=== PATIENT | female | born 1950 | race African-American/Black ===

== ENCOUNTER → 2024-07-12 | Outpatient (CLI) | payer OTHER, MEDICAID, SELFPAY ==
[2024-07-12 11:41] LABS: Glucose Estimated Average 108 mg/dL (80-131); Hemoglobin A1C 5.4 % Hgb (4.8-6.0)
== END | disposition home or self-care (01) ==
PROVIDERS: PCP Internal Medicine; Referring Provider Internal Medicine; Visit Provider Internal Medicine
DX: E11.9 Type 2 diabetes mellitus without complications (principal)
CPT/HCPCS: 36415; 83036

== ENCOUNTER → 2024-08-16 | Outpatient (CLI) | payer OTHER, MEDICAID, SELFPAY ==
[2024-08-16 16:37] LABS: Creatinine MALB Rnd Ur 129 mg/dL (30-125); Microalbumin Creat Ratio 160 mg/gCrea (<30); Microalbumin, Random Urine 207 mg/L (0-300)
== END | disposition home or self-care (01) ==
LOC: COPL 15:08
PROVIDERS: PCP Internal Medicine; Referring Provider Internal Medicine; Visit Provider Internal Medicine
DX: E11.9 Type 2 diabetes mellitus without complications (principal)
CPT/HCPCS: 82043; 82570

== ENCOUNTER → 2024-11-21 | Outpatient (CLI) | payer MEDICARE, MEDICAID, SELFPAY ==
[2024-11-21 10:16] LABS: Basophils % (Auto) 1 % (0-2.5); Eosinophils # (Auto) 0.2 Thou/mm3 (0.0-0.5); Eosinophils % (Auto) 5 % (0-10); Hematocrit 33.5 % (36.0-46.0); Hemoglobin 10.7 g/dL (12.0-16.0); Immature Granulocytes % (Auto) 1 % (0-0); Immature Granulocytes Auto 0.02 Thou/mm3 (0.00-0.00); Lymphocytes % (Auto) 30 % (10-50); Mean Corpuscular HGB Conc 31.9 g/dl (31.0-37.0); Mean Corpuscular Hemoglobin 29.1 pg (25.0-35.0); Mean Corpuscular Volume 91 fL (80-100); Monocytes # (Auto) 0.4 Thou/mm3 (0.0-0.8); Monocytes % (Auto) 12 % (0-12); Neutrophils # (Auto) 1.7 Thou/mm3 (1.8-7.7); Neutrophils % (Auto) 52 % (37-80); Nucleated Red Blood Cell % 0 /100 WBC (0); Platelet Count 191 Thou/mm3 (140-440); RDW Standard Deviation 45.5 fL (36.4-46.3); Red Blood Count 3.68 Miln/mm3 (4.00-5.20); White Blood Count 3.3 Thou/mm3 (3.6-11.0)
[2024-11-21 10:24] LABS: Glucose Estimated Average 105 mg/dL (80-131); Hemoglobin A1C 5.3 % Hgb (4.8-6.0); Partial Thromboplastin Time 27.2 Seconds (22.0-36.0); Prothrombin Time 11.4 Seconds (9.0-12.2)
[2024-11-21 10:40] LABS: Alanine Aminotransferase 10 U/L (10-49); Albumin, Serum 4.1 gm/dL (3.4-4.8); Albumin/Globulin Ratio 1.8 (1.2-2.2); Alkaline Phosphatase 88 U/L (46-116); Anion Gap 8 (7-16); Aspartate Amino Transferase 15 U/L (0-34); BUN/Creatinine Ratio 18 Ratio (12-20); Bilirubin,Total 0.5 mg/dL (0.3-1.2); Blood Urea Nitrogen 14 mg/dL (9-23); Calcium 9.4 mg/dL (8.3-10.6); Calcium (Corrected) 9.4 mg/dL (8.5-10.1); Carbon Dioxide 30.5 mMol/L (20.0-31.0); Cardiac Risk Estimate 1.9 RATIO (3.7-5.6); Chloride 103 mMol/L (98-107); Cholesterol 155 mg/dL (132-200); Creatinine (Component) 0.8 mg/dL (0.6-1.3); Free T4 (Free Thyroxine) 1.12 ng/dL (0.89-1.76); Globulin 2.3 gm/dL (2.3-3.5); Glucose 107 mg/dL (74-106); HDL Cholesterol 80 mg/dL (40-60); LDL Cholesterol,Calculated 67 mg/dL (0-130); Osmolality,Calculated 281 (275-295); Potassium 4.5 mMol/L (3.4-5.1); Sodium 141 mMol/L (136-145); Thyroid Stimulating Hormone 1.88 uIU/mL (0.55-4.78); Total Protein 6.4 gm/dL (5.7-8.2); Triglycerides 39 mg/dL (30-150); eGFR > 60 See Note
== END | disposition home or self-care (01) ==
PROVIDERS: PCP Internal Medicine; Referring Provider Internal Medicine; Visit Provider Internal Medicine
DX: Z00.00 Encounter for general adult medical examination without abnormal findings (principal); I10 Essential (primary) hypertension; E11.65 Type 2 diabetes mellitus with hyperglycemia
CPT/HCPCS: 36415; 80053; 80061; 83036; 84439; 84443; 85025; 85610; 85730

== ENCOUNTER → 2025-02-16 | Outpatient (CLI) | payer MEDICARE, MEDICAID, SELFPAY ==
[2025-02-16 11:19] LABS: Basophils % (Auto) 1 % (0-2.5); Eosinophils # (Auto) 0.1 Thou/mm3 (0.0-0.5); Eosinophils % (Auto) 3 % (0-10); Hematocrit 37.7 % (36.0-46.0); Immature Granulocytes % (Auto) 1 % (0-0); Immature Granulocytes Auto 0.02 Thou/mm3 (0.00-0.00); Lymphocytes % (Auto) 24 % (10-50); Mean Corpuscular HGB Conc 31.8 g/dl (31.0-37.0); Mean Corpuscular Hemoglobin 29.6 pg (25.0-35.0); Mean Corpuscular Volume 93 fL (80-100); Monocytes # (Auto) 0.4 Thou/mm3 (0.0-0.8); Monocytes % (Auto) 10 % (0-12); Neutrophils # (Auto) 2.5 Thou/mm3 (1.8-7.7); Neutrophils % (Auto) 62 % (37-80); Nucleated Red Blood Cell % 0 /100 WBC (0); Platelet Count 133 Thou/mm3 (140-440); RDW Standard Deviation 49.5 fL (36.4-46.3); Red Blood Count 4.05 Miln/mm3 (4.00-5.20); White Blood Count 4.1 Thou/mm3 (3.6-11.0)
[2025-02-16 11:32] LABS: Glucose Estimated Average 103 mg/dL (80-131); Hemoglobin A1C 5.2 % Hgb (4.8-6.0)
[2025-02-16 11:51] LABS: Alanine Aminotransferase 14 U/L (10-49); Albumin, Serum 4.3 gm/dL (3.4-4.8); Albumin/Globulin Ratio 1.8 (1.2-2.2); Alkaline Phosphatase 77 U/L (46-116); Anion Gap 7 (7-16); Aspartate Amino Transferase 22 U/L (0-34); BUN/Creatinine Ratio 13 Ratio (12-20); Bilirubin,Total 0.5 mg/dL (0.3-1.2); Blood Urea Nitrogen 13 mg/dL (9-23); Calcium 9.5 mg/dL (8.3-10.6); Calcium (Corrected) 9.5 mg/dL (8.5-10.1); Carbon Dioxide 30.5 mMol/L (20.0-31.0); Chloride 107 mMol/L (98-107); Globulin 2.4 gm/dL (2.3-3.5); Glucose 106 mg/dL (74-106); Osmolality,Calculated 286 (275-295); Potassium 4.3 mMol/L (3.4-5.1); Sodium 144 mMol/L (136-145); Total Protein 6.7 gm/dL (5.7-8.2); eGFR 58 See Note
[2025-02-16 11:58] LABS: Creatinine MALB Rnd Ur 85 mg/dL (30-125)
[2025-02-16 12:12] LABS: Microalbumin Creat Ratio 559 mg/gCrea (<30); Microalbumin, Random Urine 475 mg/L (0-300)
== END | disposition home or self-care (01) ==
LOC: COPL 09:53
PROVIDERS: PCP Internal Medicine; Referring Provider Internal Medicine; Visit Provider Internal Medicine
DX: E11.65 Type 2 diabetes mellitus with hyperglycemia (principal); I10 Essential (primary) hypertension; D50.0 Iron deficiency anemia secondary to blood loss (chronic)
CPT/HCPCS: 36415; 80053; 82043; 82570; 83036; 85025

== ENCOUNTER → 2025-03-07 | Outpatient (CLI) | payer MEDICARE, MEDICAID, SELFPAY ==
--- NOTE | 2025-03-07 14:20 | XR_ITS ---
Examination: Bone densitometry Date and time of exam:March 07, 2025 1443 hours INDICATIONS: Menopause age 43 postmenopausal humerus fracture, personal history osteopenia Technique: Lumbar spine and hip total bone mineralization values of an calculated. Peak reference and age match control results have been displayed. Findings: Lumbar spine total bone mineralization is1.126 gm/cm2. This is 0.2 standard deviations below peak reference. This is 2.5 standard deviations above age-matched controls. Hip total bone mineralization is 0.781 gm/cm2 This is 1.6 standard deviations below peak reference. This is 0.3 standard deviations below age-matched controls Impression: There is normal mineralization based on lumbar spine measurements. There is osteoporosis based on hip measurements Lumbar mineralization is increased 6.6% compared with September 21, 2017 Hip mineralization is decreased 2.7% compared with September 21, 2017
== END | disposition home or self-care (01) ==
PROVIDERS: Referring Provider Physician Assistant; Visit Provider Physician Assistant
DX: M81.0 Age-related osteoporosis without current pathological fracture (principal)
CPT/HCPCS: 77080

== ENCOUNTER 2025-06-26 12:56 | Emergency (ER) | payer MEDICARE, MEDICAID, SELFPAY ==
[2025-06-26 13:09] VITALS: BP 197/134; PULSE 70; RESP 18; TEMP 36.4; O2SAT 98; BMI 34.9
--- NOTE | 2025-06-26 13:16 | XR_ITS ---
Examination: CT abdomen and pelvis without contrast. Coronal 3-D reconstructions. Sagittal 2-D reconstructions. Date and time of exam: June 18, 2025, 1406 hours INDICATIONS: Generalized abdominal pain today CTDI: vol (mGy): 11.8 DLP: (mGycm): 626 Technique: Axial images of the abdomen have been obtained, 3 mm slice thickness Intravenous contrast material has not been administered. Low dose protocols were performed. One or more of the following dose reduction techniques were used; automated exposure control, adjustment of the mA and/or KV according to patient size, use of iterative reconstruction technique. Findings: No focal liver lesions Spleen is not enlarged Absent gallbladder No extrahepatic biliary tract dilatation Gastric sutures Cystic structure 36 mm adjacent to the gastric fundus noted The August 24, 2022 exam No pancreatic mass Minimal 10 mm fat-containing left adrenal nodule Scarring in the anterior abdominal wall No renal or ureteral calculi Aortic calcification no aneurysmal dilatation IVC filter noted No pericecal inflammatory change A few fluid distended small bowel loops in the left abdomen Mild thickening of the left rectus muscle coronal image 162 measuring up to 25 mm in AP dimension and 5.8 cm in mediolateral dimension,. Air in the urinary bladder Atrophic uterus Severe osteopenia with anterolisthesis L4 on L5 and L5 on S1 IMPRESSION: Mild thickening of the left rectus muscle most consistent with hematoma, 2.5 cm in AP dimension and 5.8 cm in mediolateral dimension, clinical correlation advised Mild small bowel ileus
--- NOTE | 2025-06-26 13:17 | EDRME_ITS ---
Rapid Medical Screening Exam RME Arrival date/time: 06/26/25 12:56 74-year-old female with a history of hypertension presents to the emergency room with a chief complaint of bilateral lower pelvic 8 out of 10 abdominal pain x 2 days I have greeted and performed a focused initial assessment of this patient. A com prehensive ED assessment and evaluation of the patient, analysis of all test results, and completion of the medical decision making process will be conducted by additional ED providers. Chief Complaint: Flu Like Symptoms Time Seen by Provider: 06/26/25 13:03 Vital signs: Vital Signs Temperature 97.6 F 06/26/25 13:09 Pulse Rate 70 06/26/25 13:09 Respiratory Rate 18 06/26/25 13:09 Blood Pressure 197/134 H 06/26/25 13:09 Pulse Oximetry (%) 98 06/26/25 13:09 Oxygen Delivery Method Room Air 06/26/25 13:09 Vital signs reviewed by provider: Yes Exam: 8 out of 10 tenderness to the bilateral lower abdomen Clear bilateral lung sounds Clinical Impression: Appendicitis/diverticulitis/abdominal pain
[2025-06-26 13:24] VITALS: BP 197/134; PULSE 70
[2025-06-26] MEDS: KETOROLAC INJ 60 MG/2 ML VIAL 30 MG IM (13:24)
--- NOTE | 2025-06-26 14:33 | PC.NURSE ---
PT TRYING TO GIVE URINE SPECIMEN WHEN ASKED.
[2025-06-26 14:36] LABS: Basophils # (Auto) 0.0 Thou/mm3 (0.0-0.2); Basophils % (Auto) 1 % (0-2.5); Eosinophils # (Auto) 0.4 Thou/mm3 (0.0-0.5); Eosinophils % (Auto) 9 % (0-10); Hematocrit 35.7 % (36.0-46.0); Hemoglobin 11.6 g/dL (12.0-16.0); Immature Granulocytes Auto 0.01 Thou/mm3 (0.00-0.00); Lymphocytes # (Auto) 1.0 Thou/mm3 (1.0-4.8); Lymphocytes % (Auto) 26 % (10-50); Mean Corpuscular HGB Conc 32.5 g/dl (31.0-37.0); Mean Corpuscular Hemoglobin 30.1 pg (25.0-35.0); Mean Corpuscular Volume 93 fL (80-100); Monocytes # (Auto) 0.3 Thou/mm3 (0.0-0.8); Monocytes % (Auto) 9 % (0-12); Neutrophils # (Auto) 2.2 Thou/mm3 (1.8-7.7); Neutrophils % (Auto) 55 % (37-80); Nucleated Red Blood Cell # 0.00 Thou/mm3 (0.00-0.00); Nucleated Red Blood Cell % 0 /100 WBC (0); Platelet Count 140 Thou/mm3 (140-440); RDW Standard Deviation 46.2 fL (36.4-46.3); Red Blood Count 3.85 Miln/mm3 (4.00-5.20); White Blood Count 4.0 Thou/mm3 (3.6-11.0)
[2025-06-26 14:55] LABS: Alanine Aminotransferase 14 U/L (10-49); Albumin, Serum 4.3 gm/dL (3.4-4.8); Albumin/Globulin Ratio 2.0 (1.2-2.2); Alkaline Phosphatase 87 U/L (46-116); Anion Gap 8 (7-16); Aspartate Amino Transferase 28 U/L (0-34); BUN/Creatinine Ratio 13 Ratio (12-20); Bilirubin,Total 0.7 mg/dL (0.3-1.2); Blood Urea Nitrogen 10 mg/dL (9-23); Calcium 9.0 mg/dL (8.3-10.6); Calcium (Corrected) 9.0 mg/dL (8.5-10.1); Carbon Dioxide 29.8 mMol/L (20.0-31.0); Chloride 105 mMol/L (98-107); Creatinine (Component) 0.8 mg/dL (0.6-1.3); Estimated Creatinine Clearance 58.8 mL/min (>60); Globulin 2.1 gm/dL (2.3-3.5); Glucose 108 mg/dL (74-106); Lipase 29 U/L (12-53); Osmolality,Calculated 284 (275-295); Potassium 3.6 mMol/L (3.4-5.1); Sodium 143 mMol/L (136-145); Total Protein 6.4 gm/dL (5.7-8.2); eGFR > 60 See Note
[2025-06-26 15:54] LABS: Collection Type, Urine Clean Catch
[2025-06-26 16:18] LABS: Bacteria,Urine 1+; Bilirubin,Urine Negative (Negative); Blood,Urine Trace (Negative); Color,Urine Yellow (Lt Yel-Yel); Glucose, Urine Negative (Negative); Hyaline Casts,Urine < 1 /hpf (0-1); Ketones,Urine Negative (Negative); Leukocyte Esterase,Urine Positive (Negative); Nitrite,Urine Negative (Negative); PH,Urine 6.5 (5.0-7.0); Protein,Urine 1+ (Neg - Trace); RBC,Urine 3 /hpf (0-3); Specific Gravity,Urine 1.015 (1.001-1.035); Squamous Epithelial Cell,Urine 1 /hpf (0-5); Urobilinogen,Urine Negative mg/dL (0.0-1.0); WBC,Urine 33 /hpf (0-5)
--- NOTE | 2025-06-26 16:46 | PC.NURSE ---
PATIENT CAME UP TO TRIAGE NURSE AND STATED SHE WOULD BE LEAVING DUE TO HAVING WAITED HERE ALL DAY TO GET HER RESULTS. PATIENT WAS EXPLAINED THAT SHE WOULD NOT BE PRESCRIBED ANYTHING IF NEEDED IF SHE DECIDED TO LEAVE. PATIENT STATED SHE DID NOT CARE AND SHE WOULD BE LEAVING WITHOUT BEING DISCHARGED.
[2025-06-26 16:56] LABS: Clarity,Urine Hazy (Clear/Hazy)
== END 2025-06-26 16:49 | disposition left against medical advice (07) ==
LOC: SERX 13:34
PROVIDERS: Nurse Practitioner Family; Emergency Provider Family Medicine; PCP Family Medicine
DX: Z53.21 Procedure and treatment not carried out due to patient leaving prior to being seen by health care provider (principal)
CPT/HCPCS: 36415; 74176; 80053; 81001; 83690; 85025; 87077; 87086; 87186; 96372; 99283; J1885; A9270

== ENCOUNTER 2025-07-14 16:53 | Emergency (ER) | payer MEDICARE, MEDICAID, SELFPAY ==
[2025-07-14 17:56] VITALS: BP 225/117; PULSE 61; RESP 17; TEMP 36.7; O2SAT 96; BMI 34.7
[2025-07-14 18:22] VITALS: BP 248/115; PULSE 59; RESP 18; O2SAT 99
--- NOTE | 2025-07-14 18:27 | PC.NURSE ---
md notified of bp at this time , patient will be seen by provider
--- NOTE | 2025-07-14 18:35 | XR_ITS ---
Examination: Fingers, left hand second digit 3 views Technique: AP, oblique, lateral views left hand second digit 3 views. Exam date and time: July 14 2025, 1857 hours INDICATIONS: Left second digit swelling and pain beginning 2 months ago. FINDINGS: Soft tissue swelling second digit centered around the proximal interphalangeal joint No acute fracture No focal bone destruction Significant osteoarthritis proximal and distal interphalangeal joint second digit IMPRESSION: Soft tissue swelling about the second digit with osteoarthritis as above
--- NOTE | 2025-07-14 18:36 | PD.EDHAND ---
Upper Extremity Injury RME/HPI General Chief Complaint: Hand/Wrist Problems Stated Complaint: L HAND 2ND DIGIT SWELLING X 2 WEEKS Time Seen by Provider: 07/14/25 18:27 Arrival date/time: 07/14/25 16:53 RME / HPI RME / HPI narrative: Dr. Balderrama?s Main ED Evaluation: 74 y/o female with Hx of Osteoarthritis, Type II DM, HTN, and Anxiety presents with left hand, second digit pain and swelling x 2 weeks, worse over the last week. Patient reports blood pressure generally increases when she is in pain. Denies fever, chills, and sweats. Related Data Home Medications ?Medication ?Instructions ?Recorded ?Confirmed benazepril 40 mg tablet 40 mg PO QAM 04/14/22 02/18/23 carvedilol 6.25 mg tablet 6.25 mg PO BID 04/14/22 02/18/23 duloxetine 40 mg capsule,delayed 40 mg PO BID 04/14/22 02/18/23 release hydrocodone 10 mg-acetaminophen 1 tab PO Q6H PRN Moderate Pain 08/26/22 02/18/23 325 mg tablet (Scale Score 5-6) Held on 02/18/23. Instructions: Resume on 02/19/23. ferrous sulfate 325 mg (65 mg 325 mg PO BID 02/18/23 02/18/23 iron) tablet (FeroSul) montelukast 10 mg tablet 10 mg PO DAILY 02/18/23 02/18/23 oxybutynin chloride 10 mg 10 mg PO DAILY 02/18/23 02/18/23 tablet,extended release 24 hr triamterene 37.5 1 tab PO DAILY 02/18/23 02/18/23 mg-hydrochlorothiazide 25 mg tablet Allergies Allergy/AdvReac Type Severity Reaction Status Date / Time ampicillin Allergy Unknown RASH, FEVER Verified 07/14/25 16:55 fentanyl Allergy Unknown Hives Verified 07/14/25 16:55 morphine Allergy Unknown Hives Verified 07/14/25 16:55 Penicillins Allergy Unknown RASH, FEVER Verified 07/14/25 16:55 sulfamethizole Allergy Unknown Itching Verified 07/14/25 16:55 trimethoprim Allergy Unknown Itching Verified 07/14/25 16:55 Review of Systems Review of Systems Systems Reviewed: All systems reviewed, normal except as documented Past Medical History Past Medical History NEUROLOGIC: Positive Neurological Disorders and Migraine CARDIAC: Positive Deep Vein Thrombosis and Hypertension RESPIRATORY: Positive Asthma and Pneumonia GASTROINTESTINAL: Positive Gastrointestinal Disorders, Hepatitis, Gall Bladder Disease, Gastrointestinal Bleed and Gastroesophageal Reflux Disease GENITOURINARY: Positive Genitourinary Disorders REPRODUCTIVE: Positive Previous Pregnancies MUSCULOSKELETAL: Positive Musculoskeletal Disorders and Arthritis ENT: Positive Cataracts ENDOCRINE: Positive Endocrine Disorders and Diabetes Mellitus Type 2 (hypoglycemic) PSYCHO/SOCIAL: Positive Depression and Anxiety OTHER HISTORY: Positive Hospitalization, Falls, Blood Transfusions, Chicken Pox, Measles and Mumps Family History FAMILY HISTORY: Positive Family Cardiac Disorders and Family Surgery Surgical History SURGICAL: Positive Abdominal Surgery, Gastric Bypass Surgery and Joint Replacement ED Exam Narrative Physical exam: GENERAL APPEARANCE: alert and oriented x 4, well-developed, well-nourished, no acute distress VITALS: All vitals were reviewed and the pulse ox is 99% on room air, which is normal according to my interpretation. HEENT: Normocephalic, atraumatic; pupils equal, round, reactive to light; EOMI; mucous membranes pink, moist; oropharynx clear NECK: Supple LUNGS: CTABL; no wheezes, no rales, no rhonchi HEART: Regular rate, regular rhythm; normal S1, S2; no murmurs ABDOMEN: non distended; normal BS; soft, no tenderness, no guarding, no rebound; no masses, no organomegaly, no hernia BACK: no CVA tenderness EXTREMITIES: Left Hand: second digit with circumferential swelling between the MCP and DIP, TTP, no erythema, open wounds, or deformities. Finger is not held in passive flexion, there is no tenderness along the extensor tendon. There is mild tenderness on passive extension of the finger. NEUROLOGIC: awake; alert and oriented x4; cranial nerves II-XII grossly intact; no focal sensory or motor deficits PSYCHIATRIC: appropriate mood and affect SKIN: warm, dry, normal color; no rashes Course Quality Measures none Orders Category Date Time Status Miscellaneous Nursing Order NOW Care 07/14/25 19:34 Completed XR finger LT min 2V Stat Exams 07/14/25 18:35 Completed HYDROcodone*/APAP 5/325 [Valentine 5/325] Med 07/14/25 18:35 Discontinued 1 tab PO X1 ONE Ketorolac Inj [Toradol Inj] Med 07/14/25 18:35 Discontinued 30 mg IM X1 ONE cloNIDine HCL [Catapres] Med 07/14/25 18:35 Discontinued 0.1 mg PO X1 ONE Vital Signs Vital signs: Vital Signs Temperature 98.0 F 07/14/25 17:56 Pulse Rate 61 07/14/25 17:56 Respiratory Rate 17 07/14/25 17:56 Blood Pressure 225/117 H 07/14/25 17:56 Pulse Oximetry (%) 96 07/14/25 17:56 Oxygen Delivery Method Aerosol Mask 07/14/25 17:56 Extremity Injury MDM Narrative MDM Narrative:: Scribe Attestation: I, Kristi Marshall, am scribing for and in the presence of Dr. Balderrama. Provider Notation: Although this document has been carefully reviewed, there may still be some phonetic and other typographical errors. These errors are purely grammatical due to imperfections in the software program and should not be construed in any way to compromise the substance of the patient's medical care during this visit. Patient data External records reviewed:: [facility] previous records (Reviewed prior ED records from 09/04/22. Patient was seen for DVT (deep venous thrombosis).) Clinical information provided by:: patient Social determinants that could affect healthcare access:: none Patient has the following chronic illnesses:: Migraine, Deep Vein Thrombosis, Hypertension, Asthma, Hepatitis, Gall Bladder Disease, Gastrointestinal Bleed, Gastroesophageal Reflux Disease, Osteoarthritis, Cataracts, Diabetes Mellitus Type 2, Depression and Anxiety How is presenting disease/condition affected by chronic disease/condition?: exacerbated by Evaluation data The following diagnostics were reviewed and interpreted by me:: radiology exam(s) Lab and/or radiology exams considered but not ordered:: None Interpretation Summary: RADIOLOGY Left Finger 2v x-ray, per my interpretation, shows evidence of advanced arthritis and possible fracture at the PIP joint of the second digit. Left Finger X-Ray: FINDINGS: Soft tissue swelling second digit centered around the proximal interphalangeal joint No acute fracture No focal bone destruction Significant osteoarthritis proximal and distal interphalangeal joint second digit IMPRESSION: Soft tissue swelling about the second digit with osteoarthritis as above Medications / Prescriptions Medications or Prescriptions considered but not ordered:: None Medication administrations:: Medication Administration History Discontinued Medications Hydrocodone Bitart/Acetaminophen (Hydrocodone/Apap 5/325 Tablet) 1 tab PO X1 ONE Stop: 07/14/25 18:36 Last Admin: 07/14/25 18:51 Dose: 1 tab Documented By: EMMIE Clonidine (Clonidine Hcl 0.1 Mg Tablet) 0.1 mg PO X1 ONE Stop: 07/14/25 18:36 Last Admin: 07/14/25 18:52 Dose: 0.1 mg Documented By: EMMIE Ketorolac Tromethamine (Ketorolac Inj 30 Mg/Ml Vial) 30 mg IM X1 ONE Stop: 07/14/25 18:36 Last Admin: 07/14/25 18:51 Dose: 30 mg Documented By: EMMIE See above if any Consultations Consultation(s) initiated? (list below): No Diagnosis Upper Extremity Injury Differential Diagnosis: finger sprain, dislocation of finger and fracture of hand Most likely diagnosis given after review of the tests above:: See clinical impression below. Admission Indicated Admission indicated?: not indicated Explain why admission is indicated or not indicated:: Patient has no emergent abnormalities in their studies and can be managed on an outpatient basis. Admission Request Was there a request for admission?: No Disposition Plan Disposition Plan: Discharge Discharge Attestation Discharge Attestation: The patient and all family members were given an opportunity to ask questions and understood the discharge instructions. Discharge instructions specifically effects, indications for sooner follow up or return to the emergency department, and the expected course of current diagnosis. Patient condition: Stable Discharge Plan Plan Patient Disposition: HOME (Self Care) Discharge Disposition comment: Stable for discharge home Patient condition on transfer: Stable Prescriptions/Referrals Prescriptions/Med Rec: No Action carvedilol 6.25 mg Tablet 6.25 mg PO BID Rx Instructions: must administer with a meal/food benazepril 40 mg Tablet 40 mg PO QAM duloxetine 40 mg capsule,delayed release(DR/EC) 40 mg PO BID hydrocodone-acetaminophen 10-325 mg tablet 1 tab PO Q6H PRN (Reason: Moderate Pain (Scale Score 5-6)) oxybutynin chloride 10 mg tablet extended release 24hr 10 mg PO DAILY ferrous sulfate [FeroSul] 325 mg (65 mg iron) tablet 325 mg PO BID triamterene-hydrochlorothiazid 37.5-25 mg tablet 1 tab PO DAILY montelukast 10 mg tablet 10 mg PO DAILY Referrals: [facility] [Provider Group] - In 1 week Problem List Clinical Impression: Osteoarthritis, Finger fracture Patient/Caregiver Discharge Instructions Discharge Activity: activity as tolerated Education Materials: What Is Osteoarthritis?, Osteoarthritis: Coping with Pain, ED Fracture, Finger, Closed, ED Osteoarthritis Additional Instructions: As always, please return to the emergency department if you have any worsening or any further medical problems and we will help you. Today your x-ray showed that you have advanced osteoarthritis of your hand. It appears that you have a fracture of your left index finger. You should wear the finger splint for at least the next 2 weeks. Please make a call to the [facility] care [facility] or your primary care doctor so that you can have a follow-up appointment here in the next few days. Print Language: Hebrew Stand Alone Forms: Mayuri Award Info., Patient Portal Info Letter
[2025-07-14] MEDS: HYDROcodone/APAP 5/325 TABLET 1 TAB PO (18:51)
[2025-07-14] MEDS: KETOROLAC INJ 30 MG/ML VIAL IM (18:51)
[2025-07-14 18:52] VITALS: BP 248/115; PULSE 60
[2025-07-14 19:17] VITALS: BP 237/164; PULSE 68; RESP 12; TEMP 36.8; O2SAT 100
[2025-07-14 19:58] VITALS: BP 209/126; PULSE 60; RESP 15; O2SAT 100
== END 2025-07-14 20:00 | disposition home or self-care (01) ==
LOC: SERX 20:20
PROVIDERS: Emergency Provider Emergency Medicine
DX: S62.611A Displaced fracture of proximal phalanx of left index finger, initial encounter for closed fracture (principal); M19.042 Primary osteoarthritis, left hand; X58.XXXA Exposure to other specified factors, initial encounter
CPT/HCPCS: 73140; 96372; 99283; J1885; A9270